=== PATIENT | male | born 1960 | race Caucasian/White ===

== ENCOUNTER 2020-06-19 14:36 | Emergency (ER) | payer OTHER, SELFPAY ==
[2020-06-19 14:43] VITALS: BP 136/80; PULSE 70; RESP 13; TEMP 36.5; O2SAT 100
--- NOTE | 2020-06-19 14:47 | ECG_ITS ---
Measurements Intervals [place] Rate: 68 P: 65 [place]: 175 QRS: 0 QRSD: 116 T: 39 QT: 393 QTc: 420 Interpretive Statements SINUS RHYTHM INCOMPLETE RIGHT BUNDLE BRANCH BLOCK LOW QRS VOLTAGE IN PRECORDIAL LEADS BASELINE WANDER- V3 BORDERLINE ECG Electronically Signed On 06-19-2020 17:05:23 [employer] by Jermaine Pringle D.O.
--- NOTE | 2020-06-19 14:59 | ED.ARRPALP ---
HPI - Arrhythmia/Palpitations General Chief Complaint: Arrhythmia/Palpitations Stated Complaint: heart palpitations x 1 month Time Seen by Provider: 06/19/20 14:46 Source: patient Mode of arrival: ambulatory Limitations: no limitations History of Present Illness HPI narrative: A 59-year-old male presents to the emergency department today with complaints of palpitations. Patient states that there is been going on for a month and seem to be getting more frequent. He states that he finally came in to get checked out today because he has been concerned about him as he has been losing sleep. Patient does note that it seems to be getting worse the worst his sleep is. He states that he does suffer from anxiety, takes a couple of medications from this. He notes that some nights he will lie awake for several hours unable to go to sleep. Patient denies any associated symptoms such as chest pain, shortness of breath, lightheadedness or dizziness. He states that he used to be a heavy drinker and smoker and recently quit all this a month or so ago. He denies taking any medications for his heart, notes that he only takes losartan for his blood pressure. Related Data Home Medications Medication Instructions Recorded Confirmed alprazolam 06/19/20 atorvastatin 06/19/20 losartan 06/19/20 mirtazapine mg 06/19/20 Allergies Allergy/AdvReac Type Severity Reaction Status Date / Time Penicillins Allergy Unknown Hives / Verified 11/16/15 18:34 Red Face Tetanus Vaccines and Toxoid Allergy Unknown Unknown Verified 06/19/20 14:50 Review of Systems Review of Systems: Narrative: CONSTITUTIONAL: Denies fever, chills, or sweats. EYES: Denies visual changes, redness, or discharge. ENT: Denies rhinorrhea, congestion, sore throat, or otalgia. CARDIOVASCULAR: Endorses sporadic palpitations. RESPIRATORY: Denies cough or dyspnea. GASTROINTESTINAL: Denies abdominal pain, nausea, vomiting, or diarrhea. GENITOURINARY: Denies dysuria or hematuria. SKIN: Denies rash or itching. MUSCULOSKELETAL: Denies back pain, joint pain, or myalgia. NEUROLOGIC: Denies headache, numbness, dizziness, or weakness. PSYCHIATRIC: Denies anxiety or depression. Exam Narrative: Exam Narrative: GENERAL: Well-appearing, well-nourished, and in no acute distress. HEAD: Normocephalic, atraumatic. EYES: PERRLA and EOMI. ENT: Nares clear, no rhinorrhea or epistaxis. Mucous membranes moist. NECK: Supple. No adenopathy or masses. No carotid bruits or JVD CHEST: Clear to auscultation. No respiratory distress. No wheezes rales or rhonchi HEART: Regular rate and rhythm. No murmur heard. Normal peripheral pulses. ABDOMEN: Soft, nontender, nondistended, normal active bowel sounds. EXTREMITIES: Normal range of motion. No edema. SKIN: Warm, dry, no rash. NEURO: No focal deficits. Alert and oriented x3. PSYCH: Normal mood and affect. Course Reevaluation(s) Reevaluation #1: Patient sitting, resting comfortably. Discussed with him the results of his findings. There are no laboratory abnormalities, labs reassuring. Patient's vital signs within normal limits. Discussed with him the origin of his palpitations, few PVCs have been seen on the cardiac/vascular sonographer. Encouraged him to get plenty of rest as his insomnia is likely driving his palpitations. Patient states that he just recently had a Holter monitor. Recommend he follow-up with his primary care physician and text transcriber regarding this. Time: 16:36 Vital Signs Vital signs: Vital Signs Temperature 36.5 C 06/19/20 14:43 Pulse Rate 70 06/19/20 14:43 Respiratory Rate 13 06/19/20 14:43 Blood Pressure 136/80 06/19/20 14:43 Pulse Oximetry 100 06/19/20 14:43 Temperature 36.6 C 06/19/20 16:00 Pulse Rate 58 L 06/19/20 16:00 Respiratory Rate 13 06/19/20 16:00 Blood Pressure 134/80 06/19/20 16:00 Pulse Oximetry 97 06/19/20 16:00 MDM - Arrhythmia/Palpitations MDM Narrative Medical decision carmelina
[2020-06-19 15:20] LABS: Basophils Percent Auto 0.4 % (0.2-1.2); Eosinophils Percent Auto 0.7 % (0-4.4); Hemoglobin 14.4 g/dL (14.0-18.0); Immature Granulocyte Absolute 0.01 K/mm3 (0.00-0.031); Immature Granulocyte Percent A 0.2 % (0-0.5); Lymphocytes Absolute Auto 1.62 K/mm3 (0.9-3.2); Lymphocytes Percent Auto 29.8 % (18.3-44.2); Mean Corpuscular HGB Conc 33.5 g/dl (32-36); Mean Corpuscular Hemoglobin 31.6 pg (26-34); Mean Corpuscular Volume 94.5 fl (80-100); Mean Platelet Volume 8.7 fl (7.4-10.4); Monocytes Absolute Auto 0.6 K/mm3 (0.1-0.6); Monocytes Percent Auto 10.3 % (2.6-8.5); Neutrophils Absolute Auto 3.2 K/mm3 (1.3-6.7); Neutrophils Percent Auto 58.6 % (45.5-73.1); Platelet Count Result 223 k/mm3 (150-375); Red Blood Count 4.55 M/mm3 (4.6-6.20); Red Cell Distribution Width 12.7 % (11.5-14.5); White Blood Count 5.4 K/mm3 (4.5-10.0)
[2020-06-19] MEDS: LACTATED RINGERS 1,000 ML 999 ML IV CONT (15:20)
[2020-06-19 15:35] LABS: Alanine Aminotransferase 43 U/L (4-50); Albumin Level 4.5 g/dL (3.5-5.1); Alkaline Phosphatase 69 U/L (38-126); Anion Gap 4 mmol/L (8-16); Aspartate Amino Transferase 30 U/L (17-59); Bilirubin,Total 0.5 mg/dL (0.2-1.3); Blood Urea Nitrogen 8 mg/dL (9-20); Calcium 10.2 mg/dL (8.4-10.2); Carbon Dioxide 28 mmol/L (22-30); Chloride 108 mmol/L (98-107); Estimated CRCL calculation 133 ml/min; Estimated Glomerular Filt Rate > 60; Glucose 138 mg/dL (75-110); Magnesium 2.2 mg/dL (1.6-2.3); Potassium 4.3 mmol/L (3.4-5.0); Sodium 140 mmol/L (137-145)
[2020-06-19 15:39] LABS: Amphetamine Screen Urine Negative (Negative); Barbiturate Screen Urine Negative (Negative); Benzodiazepines Screen Urine Negative (Negative); Cannabinoid Screen Urine Negative (Negative); Cocaine Screen Urine Negative (Negative); Methadone Screen Urine Negative (Negative); Opiate Screen Urine Negative (Negative); Phencyclidine Screen Urine Negative (Negative)
[2020-06-19 15:45] LABS: Troponin I < 0.012 ng/mL (0.000-0.034)
[2020-06-19 16:00] VITALS: BP 134/80; PULSE 58; RESP 13; TEMP 36.6; O2SAT 97
[2020-06-19 16:45] VITALS: BP 135/85; PULSE 62; RESP 15; TEMP 36.6; O2SAT 99
[2020-06-19 17:31] VITALS: BP 131/77; PULSE 60; RESP 16; O2SAT 99
== END 2020-06-19 17:32 | disposition home or self-care (01) ==
PROVIDERS: Emergency Provider Emergency Medicine
DX: R00.2 Palpitations (principal); F41.9 Anxiety disorder, unspecified; F51.01 Primary insomnia; I49.3 Ventricular premature depolarization; I45.10 Unspecified right bundle-branch block
CPT/HCPCS: 36415; 80053; 80307; 83735; 84443; 84484; 85025; 93005; 96360; 96361; 99284; J7120

== ENCOUNTER 2024-01-28 12:01 | Emergency (ER) | payer OTHER, SELFPAY ==
[2024-01-28] VITALS (10 sets, daily range): BP systolic 123–146; BP diastolic 70–93; PULSE 58–72; RESP 14–18; TEMP 36.6; O2SAT 97–100
--- NOTE | ~2024-01-28 | CT_ITS ---
CT abdomen pelvis w con Ordering provider: Homar Davis MD History: 63 years Male with . LLQ pain radiating to back. hx of diverticulosis . Comparison: None. Technique: CT abdomen and pelvis with IV and without oral contrast. Automated exposure control and it erative reconstruction technique were employed. The dose-length product was 974.48 mGy-cm. 100 mL Omn ipaque 350 was given IV. Findings: VISUALIZED LOWER CHEST: Dependent atelectatic changes. UPPER ABDOMINAL ORGANS: Liver: Normal. Status post hysterectomy and urinary. The angulation: Normal. Spleen: Normal. Stomach/duodenum: Normal. Pancreas: Normal. Adrenals: Right adrenal mass measuring 3.3 x 3.6 cm. Kidneys: Stone measuring 8 mm in the left kidney midpole. Tiny cyst in the left kidney upper pole. PELVIC ORGANS: The bladder is normal. BOWEL AND MESENTERY: Colon: Mild sigmoid diverticulosis without diverticulitis. Fecal material seen in the right side of t he colon suggestive of constipation. Normal appendix. Small Bowel: Normal. No obstruction. Peritoneum/mesentery: No free air or free fluid. No mesenteric lymphadenopathy. RETROPERITONEUM: Mild atheromatous disease of the abdominal aorta. Slight dilatation in the mid aort a is noted measuring 2.7 cm. No retroperitoneal lymphadenopathy. MUSCULOSKELETAL: Superficial soft tissues: Small fat-containing left inguinal hernia. Small bilateral inguinal lymph n odes. Otherwise, The superficial soft tissues are normal. Bones: Bilateral hip avascular necrosis is noted. Age appropriate degenerative changes of the spine. IMPRESSION: 1. Stone in the left kidney lower pole with no hydronephrotic changes. 2. Right adrenal mass. Further evaluation with dynamic CT or MRI is advised. 3. Constipation. 4. No evidence of diverticulitis or appendicitis or intestinal obstruction seen. 5. Bilateral hip AVN. Reviewed, dictated and finalized at location A. IMPRESSION: 1. Stone in the left kidney lower pole with no hydronephrotic changes. 2. Right adrenal mass. Further evaluation with dynamic CT or MRI is advised. 3. Constipation. 4. No evidence of diverticulitis or appendicitis or intestinal obstruction see n. 5. Bilateral hip AVN.
--- NOTE | 2024-01-28 13:54 | ECG_ITS ---
Test Date: 2024-01-28 15:22:59 Measurements Intervals [place] Rate: 59 P: 54 HI: 196 QRS: 6 QRSD: 113 T: 34 QT: 427 QTc: 424 Interpretive Statements SINUS BRADYCARDIA INCOMPLETE RIGHT BUNDLE BRANCH BLOCK CONSIDER INFERIOR INFARCT, AGE INDETERMINATE ABNORMAL ECG No previous ECG available for comparison Electronically Signed On 01-28-2024 15:30:59 CDT by Jermaine Pringle D.O.
[2024-01-28] MEDS: SODIUM CHLORIDE 0.9% IV 2,000 ML 999 ML IV CONT (14:05)
[2024-01-28 14:18] LABS: Basophils Percent Auto 0.7 % (0.2-1.2); Eosinophils Absolute Auto 0.1 K/mm3 (0-0.3); Eosinophils Percent Auto 1.3 % (0-4.4); Hematocrit 46.4 % (42.0-52.0); Hemoglobin 15.3 g/dL (14.0-18.0); Immature Granulocyte Absolute 0.01 K/mm3 (0.00-0.031); Immature Granulocyte Percent A 0.2 % (0-0.5); Lymphocytes Absolute Auto 1.82 K/mm3 (0.9-3.2); Lymphocytes Percent Auto 32.7 % (18.3-44.2); Mean Corpuscular Volume 97.1 fl (80-100); Mean Platelet Volume 9.5 fl (7.4-10.4); Monocytes Absolute Auto 0.6 K/mm3 (0.1-0.6); Monocytes Percent Auto 11.3 % (2.6-8.5); Neutrophils Percent Auto 53.8 % (45.5-73.1); Platelet Count Result 199 k/mm3 (150-375); Red Blood Count 4.78 M/mm3 (4.6-6.20); Red Cell Distribution Width 13.3 % (11.5-14.5); White Blood Count 5.6 K/mm3 (4.5-10.0)
[2024-01-28 14:19] LABS: Appearance Urine Clear (Clear); Bilirubin Urine Negative (Negative); Blood Urine Negative (Negative); Color Urine Yellow (Yellow); Glucose Urine UA Negative (Negative); Ketones Urine Negative (Negative); Leukocyte Esterase Ur Negative LEU/UL (Negative); Nitrate Urine Negative (Negative); Protein Urine Negative (Negative); Specific Grav Ur 1.004 (1.001-1.035); Urobilinogen Urine 0.2 mg/dL (<2.0)
[2024-01-28 14:20] LABS: Add Urine Microscopic? NO
[2024-01-28 14:29] LABS: Alanine Aminotransferase 31 U/L (6-50); Albumin Level 4.4 g/dL (3.5-5.1); Alkaline Phosphatase 82 U/L (38-126); Anion Gap 7 mmol/L (4-12); Aspartate Amino Transferase 26 U/L (17-59); Bilirubin,Total 0.7 mg/dL (0.2-1.3); Blood Urea Nitrogen 9 mg/dL (9-20); Calcium 9.8 mg/dL (8.4-10.2); Carbon Dioxide 25 mmol/L (22-30); Chloride 105 mmol/L (98-107); Estimated CRCL calculation 126 ml/min; Estimated Glomerular Filt Rate > 60; Glucose 100 mg/dL (65-110); Lipase 54 U/L (23-300); Potassium 3.9 mmol/L (3.4-5.0); Sodium 137 mmol/L (137-145)
--- NOTE | 2024-01-28 17:10 | ED.GENADULT ---
HPI - General Adult General Chief complaint: Abdominal Pain Stated complaint: back pain, bloating Time Seen by Provider: 01/28/24 13:14 History of Present Illness HPI narrative: This is a 63-year-old male presenting ED with a chief complaint of abdominal pain and bloating. Patient says for the last 3 weeks he has been having abdominal pain with bloating. So seated with sharp pain across his lower abdomen. It comes and goes throughout the day. He feels like he was at of a bowel movement but cannot always go. When he does have a bowel movement he feels that his stools are very narrow. He has not had any nausea or vomiting. No fevers chills chest pain difficulty breathing. He has also been having pain in his lower back on the left side. It is worse with movement. It is an achy pain. It does not radiate down his leg. Is not associated with lower extremity weakness, urinary retention or bowel incontinence. He has no saddle anesthesia. No history of cancer IV drug use fevers trauma. He has taken Motrin with some relief. Related Data Home Medications Medication Instructions Recorded Confirmed alprazolam 0.5 mg tablet 06/19/20 atorvastatin 80 mg tablet 06/19/20 losartan 25 mg tablet 06/19/20 mirtazapine 15 mg tablet mg 06/19/20 Allergies Allergy/AdvReac Type Severity Reaction Status Date / Time Penicillins Allergy Unknown Hives / Verified 11/16/15 18:34 Red Face Tetanus Vaccines and Toxoid Allergy Unknown Unknown Verified 06/19/20 14:50 Exam Narrative: APPEARANCE: No apparent distress. Anxious. Head: atraumatic. EYES: EOMI, NOSE: Atraumatic NECK: Trachea midline RESPIRATORY: No increased rate of breathing clear to auscultation CARDIOVASCULAR: RRR, ABDOMINAL: Soft nontender no guarding rebound, no CVA tenderness MUSCULOSKELETAl: No obvious deformities NEURO: Alert. Moving 4/4 extremities SKIN:: Warm, dry. Normal color PSYCHIATRIC: Normal affect Course Vital Signs Vital signs: Vital Signs Temperature 98 F 01/28/24 12:03 Pulse Rate 72 01/28/24 12:03 Respiratory Rate 15 01/28/24 12:03 Blood Pressure 146/74 H 01/28/24 12:03 Pulse Oximetry 99 01/28/24 12:03 Oxygen Delivery Room Air 01/28/24 12:03 Temperature 98 F 01/28/24 12:03 Pulse Rate 63 01/28/24 16:46 Respiratory Rate 14 01/28/24 16:46 Blood Pressure 138/81 01/28/24 16:46 Pulse Oximetry 97 01/28/24 16:46 Oxygen Delivery Room Air 01/28/24 12:03 Medical Decision Making MDM Narrative Medical decision making narrative: -Course: 63-year-old male presenting with acute on chronic abdominal pain and bloating. CT without a definitive cause of his symptoms. There was an incidental right adrenal mass that can be followed by his primary care physician. Patient has been instructed follow-up GI doctor. He will be trial a course of NSAIDs and Robaxin as his back pain appears to be musculoskeletal. Given return precautions. -DDX includes but is not limited to: Constipation, diverticulitis, colitis, appendicitis, neoplasm, kidney stone -Co-morbidities complicating care: Anxiety, chronic GI issues -Independent interpretation of studies: Labs reviewed Imaging reviewed -Shared decision making / Disposition: Discharged -RX Motrin Tylenol Robaxin Vital Signs Vital Signs: Vital Signs Temperature 98 F 01/28/24 12:03 Pulse Rate 72 01/28/24 12:03 Respiratory Rate 15 01/28/24 12:03 Blood Pressure 146/74 H 01/28/24 12:03 Pulse Oximetry 99 01/28/24 12:03 Oxygen Delivery Room Air 01/28/24 12:03 Temperature 98 F 01/28/24 12:03 Pulse Rate 63 01/28/24 16:46 Respiratory Rate 14 01/28/24 16:46 Blood Pressure 138/81 01/28/24 16:46 Pulse Oximetry 97 01/28/24 16:46 Oxygen Delivery Room Air 01/28/24 12:03 Lab Data 01/28/24 14:11 01/28/24 14:11 Labs: Lab Results 01/28/24 Range/Units 14:11 WBC 5.6 (4.5-10.0) K/mm3 RBC
== END 2024-01-28 18:02 | disposition home or self-care (01) ==
PROVIDERS: Emergency Provider Emergency Medicine
DX: K59.00 Constipation, unspecified (principal); E27.9 Disorder of adrenal gland, unspecified; M54.50 Low back pain, unspecified
CPT/HCPCS: 36415; 74177; 80053; 81003; 83690; 85025; 93005; 96360; 99284; J7030; Q9967